=== PATIENT | female | born 1945 | race Hispanic/Latino ===

== ENCOUNTER → 2020-10-02 | Outpatient (CLI) | payer MEDICARE ==
[~2020-10-02] MED LIST: FENTANYL CITRATE/PF 100MCG/2 ML INJ ONE; MIDAZOLAM HCL 2 MG/2 ML VIAL ONE
[2020-10-02 08:01] LABS: HEMOGLOBIN 14.7 g/dL (12.0-16.0)
[2020-10-02 08:12] LABS: INR 0.88; PROTHROMBIN TIME 12.5 seconds (11.9-14.5)
[2020-10-02 08:13] LABS: PARTIAL THROMBOPLASTIN TIME 21.3 seconds (23.8-35.5)
== END ==
LOC: US 07:32
PROVIDERS: ATTEND Internal Medicine Gastroenterology
DX: R74.8 Abnormal levels of other serum enzymes (principal); Z20.822 Contact with and (suspected) exposure to COVID-19
CPT/HCPCS: 36415; 47000; 76942; 85014; 85049; 85610; 85730; 88307; J2250; J3010; U0002